=== PATIENT | male | born 1995 | race Caucasian/White ===

== ENCOUNTER 2021-04-10 13:41 | Observation (INO) ==
[2021-04-10] MEDS ORDERED: Ondansetron 4 MG/2 ML VIAL IVP PRN (16:16)
[2021-04-10] MEDS ORDERED: Melatonin 3 MG TABLET PO PRN (16:16)
[2021-04-10] MEDS ORDERED: Acetaminophen 325 MG TABLET PO PRN (16:16)
[2021-04-10] MEDS ORDERED: Naloxone 0.4 MG/ML INJ IVP PRN (16:16)
[2021-04-10 16:59] LABS: Hemoglobin 9.9 g/dL (12.9-16.9); Mean Platelet Volume 9.5 fL (9.4-12.4); Red Cell Distribution Width 15.1 % (11.5-14.5)
[2021-04-10 17:02] LABS: Basophils # 0.2 K/mcL (0.0-0.2); Basophils % 1.3 %; Eosinophils # 0.7 K/mcL (0.0-0.6); Hematocrit 32.4 % (37.5-50.1); Immature Granulocytes % 0.5 % (0-4); Lymphocytes # 2.1 K/mcL (0.6-4.6); Lymphocytes % 12.1 %; Mean Corpuscular HGB Conc 30.6 g/dL (31.6-35.5); Monocytes # 1.3 K/mcL (0.0-1.3); Monocytes % 7.3 %; Neutrophils # 13.1 K/mcL (1.6-8.9); Platelet Count 436 K/mcL (140-400); Red Blood Count 3.41 M/mcL (4.19-5.50); Segmented Neutrophils % 74.8 %; White Blood Count 17.4 K/mcL (4.3-11.1)
[2021-04-10 17:08] LABS: INR 1.2; Prothrombin Time 13.8 Seconds (9.4-12.1)
[2021-04-10 17:24] LABS: Albumin 3.1 g/dL (3.5-5.7); Albumin/Globulin Ratio 0.8 (1.1-2.2); Bilirubin,Total 0.5 mg/dL (0.3-1.0); Globulin 3.9 g/dL (2.4-3.5); Magnesium 1.9 mg/dL (1.6-2.6); Phosphorous 4.7 mg/dL (2.7-4.5); Potassium 4.8 mEq/L (3.5-5.1)
[2021-04-10 17:36] LABS: Thyroid Stimulating Hormone 1.74 mcIU/mL (0.340-5.600)
[2021-04-10] MEDS: Nicotine 21 MG PATCH.TD24 TD SCH (18:37)
[2021-04-10] MEDS ORDERED: *HR* Metoprolol 5 MG/5 ML VIAL IVP ONE (19:09)
[2021-04-10] MEDS: cloNIDine HCL 0.1 MG TABLET PO SCH (21:31)
[2021-04-10] MEDS: carvediloL 25 MG TABLET PO SCH (21:31)
[2021-04-11] MEDS: cloNIDine HCL 0.1 MG TABLET PO SCH (08:31)
[2021-04-11] MEDS: carvediloL 25 MG TABLET PO SCH (08:31)
[2021-04-11 08:35] LABS: Amphetamine Screen,Urine Negative ng/mL (Cutoff=1000); Barbiturate Screen,Urine Negative ng/mL (Cutoff=200); Benzodiazepines Screen,Urine Negative ng/mL (Cutoff=200); Cannabinoid Screen,Urine Negative ng/mL (Cutoff = 50); Cocaine Screen,Urine Negative ng/mL (Cutoff= 300); Opiate Screen,Urine Negative ng/mL (Cutoff=300); Phencyclidine Screen,Urine Negative ng/mL (Cutoff=25)
[2021-04-11 08:36] LABS: Bacteria,Urine Few per hpf (None-Few); Bilirubin,Urine Negative (Negative); Blood,Urine Trace (Negative); Clarity,Urine Clear (Clear); Color,Urine Light-Yellow (Yellow); Glucose,Urine (UA) 70 mg/dL (Normal); Hyaline Casts,Urine Few per lpf (None Seen); Ketones,Urine Negative (Negative); Leukocyte Esterase,Urine Small (Negative); Mucus,Urine Few per lpf (None-Few); Nitrite,Urine Negative (Negative); PH,Urine 8.5 pH Units (5.0-8.0); Protein,Urine >=600 mg/dL (Neg-Trace); Specific Gravity,Urine 1.017 (1.010-1.025); Urobilinogen,Urine Normal (Normal); WBC,Urine 30-50 per hpf (0-3)
[2021-04-11] MEDS: Nicotine 21 MG PATCH.TD24 TD SCH (08:38)
[2021-04-11] MEDS ORDERED: Famotidine 20 MG TABLET PO SCH (09:00)
[2021-04-11] MEDS ORDERED: amLODIPine 5 MG TABLET PO SCH (09:00)
[2021-04-11] MEDS ORDERED: Cholecalciferol (D-3) 1,000 UNIT (25MCG) TABLET PO SCH (09:00)
[2021-04-11] MEDS ORDERED: *HR* Heparin 10,000 UNIT/10 ML VIAL IV PRN (09:10)
[2021-04-11] MEDS ORDERED: 0.9 % Sodium Chloride 250 ML IVC PRN (09:10)
[2021-04-11] MEDS ORDERED: 0.9 % Sodium Chloride 1,000 ML PRIME SCH (09:15)
[2021-04-11 09:59] LABS: Basophils # 0.1 K/mcL (0.0-0.2); Eosinophils # 0.6 K/mcL (0.0-0.6); Eosinophils % 3.9 %; Hematocrit 28.3 % (37.5-50.1); Hemoglobin 8.5 g/dL (12.9-16.9); Immature Granulocytes % 0.6 % (0-4); Lymphocytes # 1.7 K/mcL (0.6-4.6); Lymphocytes % 11.5 %; Mean Corpuscular Hemoglobin 28.6 pg (28.0-33.3); Mean Corpuscular Volume 95.3 fL (83.0-100.0); Mean Platelet Volume 9.8 fL (9.4-12.4); Neutrophils # 10.9 K/mcL (1.6-8.9); Platelet Count 346 K/mcL (140-400); Red Blood Count 2.97 M/mcL (4.19-5.50); Red Cell Distribution Width 15.4 % (11.5-14.5); White Blood Count 14.4 K/mcL (4.3-11.1)
[2021-04-11 10:18] LABS: Calcium 8.8 mg/dL (8.6-10.3); Magnesium 1.9 mg/dL (1.6-2.6); Phosphorous 5.7 mg/dL (2.7-4.5); Potassium 4.9 mEq/L (3.5-5.1)
[2021-04-11 10:53] LABS: Hepatitis B Surface Antibody < 3.10 mIU/mL
[2021-04-11 11:04] LABS: Hepatitis B Surface Antigen Nonreactive (Nonreactive)
[2021-04-11 11:16] VITALS: PULSE 98; O2SAT 92
[2021-04-11] MEDS ORDERED: *HR* Alteplase (Cathflo) 2 MG VIAL IVP ONE ×2 (16:13→16:16)
[2021-04-11] MEDS ORDERED: Water for inj. (sterile) 10 ML ONE (16:29)
[2021-04-11 17:42] LABS: Basophils # 0.1 K/mcL (0.0-0.2); Eosinophils # 0.6 K/mcL (0.0-0.6); Eosinophils % 5.8 %; Hematocrit 26.7 % (37.5-50.1); Immature Granulocytes % 0.6 % (0-4); Lymphocytes # 1.5 K/mcL (0.6-4.6); Lymphocytes % 15.5 %; Mean Corpuscular Hemoglobin 28.5 pg (28.0-33.3); Mean Platelet Volume 9.7 fL (9.4-12.4); Monocytes # 0.5 K/mcL (0.0-1.3); Platelet Count 292 K/mcL (140-400); Red Blood Count 2.81 M/mcL (4.19-5.50); Red Cell Distribution Width 15.2 % (11.5-14.5); Segmented Neutrophils % 72.1 %; White Blood Count 9.8 K/mcL (4.3-11.1)
[2021-04-11 23:53] VITALS: BP 168/106; TEMP 98.1
== END 2021-04-11 22:28 | disposition home or self-care (01) ==
LOC: EMEROOARM 13:41 → 3BNU 13:41
PROVIDERS: ADMIT Pharmacist; ATTEND Pharmacist